=== PATIENT | female | born 1980 | race Caucasian/White ===

== ENCOUNTER 2021-08-01 21:32 | Emergency (ER) | payer BC ==
[2021-08-01] MEDS ORDERED: Famotidine In NaCl 20 mg/50 ml Premix Bag ONE (21:43)
== END 2021-08-02 01:10 | disposition home or self-care (01) ==
LOC: MADERS 21:32
DX: T63.441A Toxic effect of venom of bees, accidental (unintentional), initial encounter (principal); T78.2XXA Anaphylactic shock, unspecified, initial encounter; L50.9 Urticaria, unspecified
CPT/HCPCS: 96365